=== PATIENT | female | born 1985 | race Caucasian/White ===

== ENCOUNTER 2016-12-25 17:27 | Inpatient (IN) | payer BC ==
[~2016-12-25] VITALS: Ht 165.1 cm; Wt 71.0 kg
--- NOTE | ~2016-12-25 | OR ---
PATIENT'S NAME: LUCINA SAUER [facility] AGE: 31 Y [address] ROOM: [address] [address] LOCATION: GOBS ADMIT DATE: 12/25/2016 OR/Procedure Report DISCHARGE DATE: FAMILY PHYSICIAN: Feroz Rizzo MD ATTENDING PHYSICIAN: Hermelinda Zamorano SURGEON: Hermelinda Zamorano MD [employer]: DATE OF PROCEDURE: 12/25/2016 This is a 31-year-old, 2, para 1-0-0-1 who presents with dichorionic diamniotic twins at 36 weeks 0 days' gestation. Group B strep testing was negative. Babies have been in the vertex-vertex presentation. She has a history of Crohn's disease and was taking Humira until about 29 weeks. Really, her care has gone very well. She presents tonight in labor with spontaneous rupture of membranes. She was 7 to 8 cm, 100% effaced, zero station. An intrathecal was placed after her IV was started. heart tones were reassuring x2. After the intrathecal was placed, she was complete, pushed, and delivered baby A which was a boy over an intact perineum. Shoulders and body were easily delivered. Baby boy was placed on maternal abdomen. His cord was doubly clamped and cut. He received scores of 8 and 9 and weighed 5 pounds 7 ounces. Twin B was coming down vertex. She came down through a couple of contractions and ruptured membranes and found to be clear. She began pushing and twin B delivered 23 minutes after twin A. She delivered over an intact perineum. Shoulders and body were delivered. Baby girl lets out a spontaneous cry. Her cord was doubly clamped and cut. She was handed off to the warmer and weighs 5 pounds 7 ounces as well, also with an scores of 8 and 9. Three-vessel cords were noted x2. Cord blood samples collected. Placenta was delivered spontaneously and intact. I labeled twin A's cord with a cord clamp. I did a manual sweep of the uterus and found no remaining membranes or placental tissue. The uterus was firming up with Pitocin. She had about 500 mL of blood loss. Cervix and vagina were intact. Periurethral regions were intact. The patient tolerated the procedure well, was doing well in Recovery with her twins. HERMELINDA H MD CAMERON ZAMORANO/stefani /[id number] d: 12/26/16 0008 t: 12/27/16 0501, OPERATIVE SUMMARY
--- NOTE | ~2016-12-25 | OR ---
PATIENT'S NAME: LUCINA SAURE [facility] AGE: 31 Y [address] ROOM: [place] [address] LOCATION: GOBS ADMIT DATE: 12/25/2016 OR/Procedure Report DISCHARGE DATE: FAMILY PHYSICIAN: Feroz Rizzo MD ATTENDING PHYSICIAN: Pranav Zamorano SURGEON: Pranav Zamorano MD OPERATIONS CHIEF: DATE OF PROCEDURE: 12/25/2016 ADDENDUM: I do not need to dictate anything, but the patient's delivery report from actually Monday, I need send to Dr. Rosa Maria Leiva in [place] and Dr. Wilfred Helton in [place]. PRANAV ZAMORANO MD K[facility]/modl /[id number] CC: MD Rosa Maria Bush MD d: 12/27/16 1526 t: 12/31/16 0951, OPERATIVE SUMMARY
[~2016-12-25 17:27] MED LIST: FOLIC ACID1 MG PO; HUMIRA PO; IMURAN50 MG PO; PRENATAL 1+1)(P1 TAB PO; ZANTAC (NON-FO150 MG PO
[2016-12-25 18:11] LABS: BASOPHIL # 0.1 K/uL (0.0-0.2); BASOPHIL % 0.4 %; EOSINOPHIL # 0.1 K/uL (0.0-0.5); EOSINOPHIL % 0.4 %; HEMATOCRIT 35.8 % (33.0-46.0); HEMOGLOBIN 11.6 g/dL (11.0-15.0); IMMATURE GRANULOCYTE # 0.1 K/uL (0.0-0.3); LYMPHOCYTE # 1.5 K/uL (0.8-4.0); LYMPHOCYTE % 11.1 %; MCH 28.8 pg (27.0-34.0); MCHC 32.4 gm/dL (32.0-36.5); MCV 88.8 fl (83.0-98.0); MONOCYTE # 0.9 K/uL (0.0-1.0); MONOCYTE % 6.6 %; MPV 11.7 fl (9.4-12.4); NEUTROPHIL # (ANC) 11.2 K/uL (1.8-7.8); NEUTROPHIL % 80.5 %; NRBC % 0 /100WBC (0-0.00); PLATELET COUNT 176 K/uL (150-450); RBC 4.03 M/uL (3.50-5.50); RDW-CV 14.4 % (11.9-14.6); WBC 13.9 K/uL (4.0-11.0)
--- NOTE | 2016-12-26 02:36 | NUR ---
PATIENT UP TO THE BATHROOM AT 2200. PATIENT FAINTS WHILE ON THE TOILET FOR A BRIEF MOMENT. COMES TO WITHIN ONE MINUTE ON HER OWN. PATIENT TRANSFERRED TO WHEELCHAIR AND TRANSPORTED BACK TO BED. HEAD OF BED LOWERED AND BP TAKEN- 125/56. PATIENT STATES THAT SHE FEELS BETTER AND SHOWS NO OTHER SIGNS OF DISTRESS.
[2016-12-26 05:09] LABS: BASOPHIL % 0.2 %; EOSINOPHIL % 0.2 %; IMMATURE GRANULOCYTE # 0.2 K/uL (0.0-0.3); IMMATURE GRANULOCYTE % 1.1 %; LYMPHOCYTE # 1.8 K/uL (0.8-4.0); LYMPHOCYTE % 9.4 %; MCHC 31.9 gm/dL (32.0-36.5); MCV 89.3 fl (83.0-98.0); MONOCYTE % 5.6 %; MPV 11.3 fl (9.4-12.4); NEUTROPHIL # (ANC) 15.5 K/uL (1.8-7.8); NEUTROPHIL % 83.5 %; NRBC % 0 /100WBC (0-0.00); PLATELET COUNT 146 K/uL (150-450); RDW-CV 14.2 % (11.9-14.6)
[2016-12-26 05:13] LABS: HEMATOCRIT 25.1 % (33.0-46.0); MCH 28.5 pg (27.0-34.0); RBC 2.81 M/uL (3.50-5.50); WBC 18.5 K/uL (4.0-11.0)
--- NOTE | 2016-12-26 05:37 | NUR ---
VSS. HAS BEEN UP AND SHOWERED, VOIDING WITHOUT DIFFICULTY. VERY SWOLLEN, USING TEAPADS. FUNDUS FIRM, -1, SMALL FLOW. LAST HAD MOTRIN AT 0134. HAS CROHN'S DISEASE.
--- NOTE | 2016-12-26 14:02 | NUR ---
Met with mom and dad at bedside today. Introduced myself and the role of the CM department. They have a seven year old boy at home who is coming to meet the twins today. She denies having any needs at this time. Parents state they have all the necessary items to bring the twins home and no concerns. Will continue to follow and offer supports as needed.
--- NOTE | 2016-12-26 17:02 | NUR ---
Significant Event: Follow up: VSS, Hbg 8.0, from 11.6, SL dc'd. voiding well, no clots, with out vertigo, reported. Fundus firm & even, flow small rubra. Hx of Crohn's, medicated with her scheduled meds. Declined need for pain meds. Likes tea pads. Not sure if planning home oziel de jesus.
--- NOTE | 2016-12-27 05:37 | NUR ---
Last VS: T:98.0 P:96 R: 16 BP: 121/62 Pain ratin. Last pain med: None given Breasts: soft Nipples: intact tender, uses lanolin, hydroshells Fundus: firm, even, midline Lochia: small, rubra Epis/Perineum: intact, tender Voiding well: WNL Significant event: VSS, refuses pepcid, independent with cares
[2016-12-27] MEDS ORDERED: MOTRIN800 MG PO (09:56)
[2016-12-27] MEDS ORDERED: FEOSOL325 MG PO (09:56)
[2016-12-27] MEDS ORDERED: PERCOCET 5-3251 EACH PO (09:57)
== END 2016-12-27 16:45 | disposition disaster alternative care site (69) | DRG 775 ==
LOC: GOBS 17:27
PROVIDERS: ADMIT Obstetrics & Gynecology
PROC: 10E0XZZ Delivery of Products of Conception, External Approach (ICD-10-PCS; principal; 2016-12-25)
DX: O60.14X0 Preterm labor third trimester with preterm delivery third trimester, not applicable or unspecified (principal); K50.90 Crohn's disease, unspecified, without complications; O30.043 Twin pregnancy, dichorionic/diamniotic, third trimester; Z37.2 Twins, both liveborn; O99.62 Diseases of the digestive system complicating childbirth; Z3A.36 36 weeks gestation of pregnancy
CPT/HCPCS: J2590; J7120; J7500